=== PATIENT | female | born 1955 | race African-American/Black ===

== ENCOUNTER → 2017-06-18 | Outpatient (CLI) | payer OTHER ==
[~2017-06-18] MED LIST: 1-ME1LIQ PO; ALBU8I INH; AMLO5TAB2 PO; KETO60IN6 IM; LISI-515 PO; LISI40TA PO; METH125I2 IM; NAPR500T PO; OMEP40CA2 PO; ROBA750T PO; TRIA.025%T TOPICAL; TRIA0.022 TOPICAL; VENTAER INH
[2017-06-18 09:41] LABS: HEMATOCRIT 42.9 % (35.0-46.0); MEAN CELL VOLUME 81.1 FL (80.0-100.0); MEAN CORPUSCULAR HEMOGLOBIN 25.3 PG (27.0-34.0); MEAN CORPUSCULAR HGB CONC 31.2 % (32.0-36.0); PLATELET COUNT 371 TH/MM3 (150-450); RED BLOOD COUNT 5.29 MIL/MM3 (4.00-5.30); RED CELL DISTRIBUTION WIDTH 14.8 % (11.6-17.2); REVIEW FLAG FINAL; WHITE BLOOD COUNT 11.5 TH/MM3 (4.0-11.0)
[2017-06-18 10:26] LABS: ALT (GPT) 22 U/L (10-53); ANION GAP 7 MEQ/L (5-15); AST (GOT) 15 U/L (15-37); BICARBONATE 27.4 MEQ/L (21.0-32.0); BLOOD UREA NITROGEN 14 MG/DL (7-18); CHLORIDE 108 MEQ/L (98-107); GLOMERULAR FILTRATION RATE 94 ML/MIN (>89); GLUCOSE,FASTING 94 MG/DL (74-99); POTASSIUM 3.9 MEQ/L (3.5-5.1); SODIUM (NA) 142 MEQ/L (136-145)
[2017-06-18 10:28] LABS: ALKALINE PHOSPHATASE 124 U/L (45-117); HDL CHOLESTEROL 94.3 MG/DL (40.0-60.0); LDL CHOLESTEROL 91 MG/DL (0-99); TOTAL BILIRUBIN ADULT 0.7 MG/DL (0.2-1.0)
[2017-06-18 16:30] LABS: HEMOGLOBIN A1a 1.1 %; HEMOGLOBIN A1b 0.8 %; HEMOGLOBIN Ao 85.3 %; HEMOGLOBIN F 0.9 %; HEMOGLOBIN LA1C 1.9 %; HEMOGLOBIN P3 3.6 %
== END ==
LOC: CLAB 09:18
PROVIDERS: ATTEND Nurse Practitioner Family
DX: E11.9 Type 2 diabetes mellitus without complications (principal); E78.5 Hyperlipidemia, unspecified
CPT/HCPCS: 36415; 80053; 80061; 83036; 85027